=== PATIENT | female | born 1955 ===

== ENCOUNTER → 2017-09-30 | Outpatient (CLI) | payer MEDICARE, OTHER ==
[~2017-09-30] MED LIST: ATR80PT PO; CHOL10005 PO; CLON-298 PO; ESOM40CA42 PO; ESTR42.5; LEVO125T77 PO; LOSA100T67 PO; METO25TA23 PO; MIRT-1 PO; MIRT-22 PO; TRIA-20 PO; VENL37.53 PO; VENL37.594 PO
--- NOTE | 2017-09-30 15:05 | RADIOLOGY IMAGING REPORT ---
FACILITY: [facility] [place] PATIENT NAME: GANGA LYON : [id number] MR: [id number] V: [id number] EXAM DATE: [id number] ORDERING PHYSICIAN: KELSEY BROCK TECHNOLOGIST: Linda Schafer PROCEDURE:BILATERAL DIGITAL SCREENING MAMMOGRAM WITH CAD ASSISTED INTERPRETATION & 3D TOMOSYNTHESIS COMPARISON:Prior mammograms 11/22/14, 08/02/12, 04/30/11, 03/26/11. INDICATIONS:screening FINDINGS: A small amount of fibroglandular tissue is seen throughout the breasts. Postsurgical scaring in the central Left breast is again seen. The remainder of the parenchymal pattern has remained stable allowing for difference in mammographic technique & patient positioning. There is no evidence of malignant appearing mass, malignant appearing calcifications or other secondary sign of malignancy in either breast. DIAGNOSTIC CATEGORY 2--BENIGN FINDING. RECOMMENDATIONS: ROUTINE MAMMOGRAM AND CLINICAL EVALUATION. IMPRESSION: BIRADS 2: Benign finding No significant abnormality is seen. Dictated by: Miley Galloway M.D. on 09/30/2017 at 13:39 Transcribed by: BENITO on 09/30/2017 at 13:45 Approved by: Miley Galloway M.D. on 09/30/2017 at 15:04 [facility]
== END ==
LOC: MAMO 01:24
PROVIDERS: ATTEND Obstetrics & Gynecology
DX: Z12.31 Encounter for screening mammogram for malignant neoplasm of breast (principal)
CPT/HCPCS: 77063; 77067

== ENCOUNTER → 2018-08-31 | Outpatient (CLI) | payer MEDICARE ==
[~2018-08-31] MED LIST changes: -CLON-298 PO; +CLON-331 PO; -LOSA100T67 PO; +LOSA100T75 PO
== END ==
LOC: RESP 20:15
PROVIDERS: ATTEND Family Medicine
DX: G47.33 Obstructive sleep apnea (adult) (pediatric) (principal); G47.61 Periodic limb movement disorder; G47.36 Sleep related hypoventilation in conditions classified elsewhere

== ENCOUNTER → 2018-09-16 | Outpatient (CLI) | payer MEDICARE | LOC: RESP 20:20 | PROVIDERS: ATTEND Family Medicine | DX: G47.33 Obstructive sleep apnea (adult) (pediatric) (principal); G47.36 Sleep related hypoventilation in conditions classified elsewhere; G47.61 Periodic limb movement disorder ==

== ENCOUNTER → 2018-11-24 | Outpatient (CLI) | payer MEDICARE ==
--- NOTE | 2018-11-29 12:26 | RADIOLOGY IMAGING REPORT ---
FACILITY: [facility] PATIENT NAME: GANGA LYON : [id number] MR: [id number] V: [id number] EXAM DATE: [id number] ORDERING PHYSICIAN: RAGHAVENDRA PAZ TECHNOLOGIST: Teresa Barros PROCEDURE: BILATERAL DIGITAL SCREENING MAMMOGRAM WITH CAD ASSISTED INTERPRETATION & 3D TOMOSYNTHESIS REASON FOR STUDY: Screening. FAMILY HISTORY OF BREAST CANCER: Mother at age 65. BREAST PROCEDURES/TREATMENTS: Benign lumpectomy of the Left breast. COMPARISON: Prior mammograms 09/30/17, 11/22/14, 08/02/12. VIEWS OBTAINED: 2D & 3D full field CC & MLO. BREAST DENSITY: There are scattered areas of fibroglandular density throughout the breasts. MAMMOGRAM FINDINGS: There is an area of architectural distortion posterior to mid nipple line on the Left CC & MLO views that appears unchanged when compared to the prior study and is consistent with history of a previous surgical biopsy. The parenchymal pattern has remained stable allowing for difference in mammographic technique & patient positioning. IMPRESSION: BIRADS 2: Benign finding. DIAGNOSTIC CATEGORY 2--BENIGN FINDING. RECOMMENDATIONS: ROUTINE MAMMOGRAM AND CLINICAL EVALUATION. Dictated by: Miley Galloway M.D. on 11/24/2018 at 15:41 Transcribed by: BENITO on 11/25/2018 at 9:04 Approved by: Miley Galloway M.D. on 11/29/2018 at 12:25 [facility]
== END ==
LOC: MAMO 01:09
PROVIDERS: ATTEND Obstetrics & Gynecology
DX: Z12.31 Encounter for screening mammogram for malignant neoplasm of breast (principal)
CPT/HCPCS: 77063; 77067